=== PATIENT | male | born 1970 | race Caucasian/White ===

== ENCOUNTER → 2024-04-13 10:08 | Outpatient (REF) | payer MEDICARE, OTHER, SELFPAY ==
[2024-04-13 12:34] LABS: ALT (SGPT) 33 U/L (0-50); AST (SGOT) 49 U/L (17-59); Blood Urea Nitrogen 25 mg/dl (9-20); Calcium 9.8 mg/dl (8.4-10.2); Carbon Dioxide 24 mmol/L (22-30); Chloride 105 mmol/L (98-107); Glucose 98 mg/dl (70-99); HDL Cholesterol 48 mg/dl; LDL Cholesterol, Calculated 110 mg/dl; Potassium 4.5 mmol/L (3.5-5.1); Sodium 144 mmol/L (135-145); Total Cholesterol 233 mg/dl (50-199); Triglyceride 379 mg/dl (10-149); Very Low Density Lipoprotein 75 mg/dl (0-30); eGFR 44.45
[2024-04-13 13:03] LABS: TSH 5.63 uIU/ml (0.47-4.68)
== END ==
LOC: HWRAD 10:08
PROVIDERS: ATTENDING PHYSICIAN Internal Medicine Interventional Cardiology; FAMILY PHYSICIAN Family Medicine
DX: I71.21 Aneurysm of the ascending aorta, without rupture (principal); E78.5 Hyperlipidemia, unspecified
CPT/HCPCS: 36415; 71250; 74176; 80048; 80061; 84443; 84450; 84460

== ENCOUNTER → 2024-05-04 10:36 | Outpatient (REF) | payer OTHER, SELFPAY ==
[2024-05-04 11:49] LABS: Urine Albumin Trace (Neg - Trace); Urine Bilirubin 1+ (Negative); Urine Character Clear (Clear); Urine Color Yellow; Urine Glucose Negative (Negative); Urine Ketone Negative (Negative); Urine Leukocyte Negative (Negative); Urine Nitrite Negative (Negative); Urine Occult Blood Negative (Negative); Urine Urobilinogen 1+ (Neg - 1+)
[2024-05-04 11:55] LABS: Blood Urea Nitrogen 31 mg/dl (9-20); Calcium 10.1 mg/dl (8.4-10.2); Carbon Dioxide 20 mmol/L (22-30); Chloride 104 mmol/L (98-107); Glucose 108 mg/dl (70-99); Phosphorus 3.8 mg/dl (2.5-4.5); Potassium 4.6 mmol/L (3.5-5.1); Sodium 140 mmol/L (135-145); eGFR 44.45
[2024-05-04 12:06] LABS: Intact PTH 86.1 pg/ml (13.6-85.8)
[2024-05-04 12:17] LABS: Osmolality Urine 453 mOsm/kg (300-900); Protein/creatinine Ratio 0.1; Urine Protein 14 mg/dl
== END ==
LOC: REG 10:36
PROVIDERS: ATTENDING PHYSICIAN Specialist
DX: N18.31 Chronic kidney disease, stage 3a (principal); N25.81 Secondary hyperparathyroidism of renal origin; E83.52 Hypercalcemia; E87.1 Hypo-osmolality and hyponatremia
CPT/HCPCS: 36415; 80048; 81003; 82570; 83935; 83970; 84100; 84156

== ENCOUNTER → 2024-10-31 12:35 | Outpatient (REF) | payer OTHER, SELFPAY ==
[2024-10-31 13:37] LABS: Blood Urea Nitrogen 19 mg/dl (9-20); Calcium 9.8 mg/dl (8.4-10.2); Carbon Dioxide 25 mmol/L (22-30); Chloride 109 mmol/L (98-107); Glucose 105 mg/dl (70-99); HDL Cholesterol 44 mg/dl; LDL Cholesterol, Calculated 95 mg/dl; Potassium 4.5 mmol/L (3.5-5.1); Sodium 143 mmol/L (135-145); Total Cholesterol 218 mg/dl (50-199); Triglyceride 396 mg/dl (10-149); Very Low Density Lipoprotein 79 mg/dl (0-30); eGFR 47.31
[2024-10-31 14:00] LABS: TSH 2.83 uIU/ml (0.47-4.68)
== END ==
LOC: REG 12:35
PROVIDERS: ATTENDING PHYSICIAN Family Medicine
DX: E78.5 Hyperlipidemia, unspecified (principal); E03.9 Hypothyroidism, unspecified; N18.31 Chronic kidney disease, stage 3a
CPT/HCPCS: 36415; 80048; 80061; 84443

== ENCOUNTER → 2024-11-28 11:56 | Outpatient (REF) | payer OTHER, SELFPAY ==
[2024-11-28 13:05] LABS: % Basophils 0.7 % (0-2); % Eosinophils 3.4 % (0-6); % Lymphocytes 30.6 % (20.5-51.1); % Monocytes 12.4 % (1.7-9.3); % Neutrophils 51.9 % (42.2-75.2); Absolute Basophils 0.1 10^3/uL (0-0.2); Absolute Eosinophils 0.2 10^3/uL (0-0.7); Absolute Immature Granulocytes 0.1 10^3/uL (0-0.05); Absolute Lymphocytes 2.1 10^3/uL (1.2-3.4); Absolute Monocytes 0.9 10^3/uL (0.1-0.6); Absolute Neutrophils 3.6 10^3/uL (1.4-6.5); Hematocrit 38.8 % (39.0-52.0); Hemoglobin 13.1 g/dL (13.0-18.0); Mean Corp Hgb Conc. 33.8 g/dL (33.0-37.0); Mean Corpuscular Hgb 34.5 pg (27.0-31.0); Mean Corpuscular Volume 102.1 fL (80.0-94.0); Mean Platelet Volume 11.8 fL (7.4-10.4); Nucleated Red Blood Cells % 0 % (-); Platelet Count 181 10^3/uL (130-400); Red Cell Dist. Width 13.2 % (11.5-14.5); White Blood Cell Count 6.9 10^3/uL (4.8-10.8)
[2024-11-28 13:11] LABS: Depakane 121.7 ug/ml (50.0-120.0)
[2024-11-28 14:02] LABS: ALT (SGPT) 29 U/L (0-50); AST (SGOT) 36 U/L (17-59); Alkaline Phosphatase 70 U/L (38-126); Blood Urea Nitrogen 21 mg/dl (9-20); Calcium 10.2 mg/dl (8.4-10.2); Carbon Dioxide 23 mmol/L (22-30); Chloride 105 mmol/L (98-107); Glucose 159 mg/dl (70-99); HDL Cholesterol 37 mg/dl; Potassium 4.5 mmol/L (3.5-5.1); Sodium 141 mmol/L (135-145); Total Bilirubin 0.6 mg/dl (0.2-1.3); Total Cholesterol 228 mg/dl (50-199); Total Protein 6.8 g/dl (6.3-8.2); Triglyceride > 400 mg/dl (10-149)
[2024-11-28 14:27] LABS: LDL Cholesterol, Direct 130 mg/dl
[2024-11-28 14:50] LABS: Glycohemoglobin (HgbA1c) 5.9 % (4.0-5.6)
== END ==
LOC: REG 11:56
PROVIDERS: ATTENDING PHYSICIAN Nurse Practitioner Family; FAMILY PHYSICIAN Family Medicine
DX: Z79.899 Other long term (current) drug therapy (principal)
CPT/HCPCS: 36415; 80053; 80061; 80159; 80164; 83036; 83721; 85025

== ENCOUNTER 2025-01-16 06:19 | Day surgery (SDC) | payer OTHER, SELFPAY ==
[2025-01-16 12:39] VITALS: BMI 47.8
[2025-01-16 12:42] VITALS: BMI 47.8
[2025-01-16 12:43] VITALS: BP 136/90
[2025-01-16 14:27] VITALS: BP 112/95
[2025-01-16 14:30] VITALS: BP 107/73
[2025-01-16 14:45] VITALS: BP 111/89
== END 2025-01-16 15:20 | disposition home or self-care (01) ==
LOC: SDS 06:19
PROVIDERS: ATTENDING PHYSICIAN Surgery
DX: Z12.11 Encounter for screening for malignant neoplasm of colon (principal); Z53.9 Procedure and treatment not carried out, unspecified reason
CPT/HCPCS: G0121

== ENCOUNTER 2025-03-19 15:53 | Inpatient (IN) | payer OTHER, SELFPAY ==
--- NOTE | 2025-03-19 12:29 | HPS.HSE ---
Family Physician
-
Family Physician: NO INTERVIEW UNKNOWN
Chief Complaint
-
change in bowel habits
History of Present Illness
54-year-old male with PMH of LETICIA (on CPAP), HTN, HLD, hypothyroidism, bipolar disorder, schizoaffective disorder, CKD stage III, BMI > 49, AAA who presents for discussion of colonoscopy.� He denies any symptoms. Specifically, denies any
nausea/vomiting, change in appetite, unintentional weight loss, abdominal pain or hematochezia.� He does have issues with constipation.� He has a bowel movement about once a day, but strains to get it out. Denies diarrhea.
Last colonoscopy was 01/16/2025 by myself, which had solid stool within the rectosigmoid and sigmoid colon, precluding visualization and the colonoscopy was aborted. His prior colonoscopy was in [address] Carter, which was complicated by poor prep
and recommended to be repeated. Denies family history of CRC.
Medical History
Past Medical History
Past Medical History: Reports Other (sleep apnea, obesity, bipolar disorder, hyperparathyroidism, HTN, dyslipidemia, chronic stage II kidney disease, hypothyroid, hyperlipidemia, BPH, schizophrenia )
Past Surgical History: Reports Other (none)
Social History
Tobacco: Non-smoker
Alcohol: None
Family History
Family History: Not pertinent
Allergies / Home Medications
Allergies reflects when Allergies were last updated in [facility].
Home Medications with original date entered in [facility]
Acetaminophen 325 MG Tablet 1-2 tab Orally q 6 PRN
Aspirin 81(Aspirin) 81 MG Tablet Chewable 1 tablet Orally Once a day
Atorvastatin Calcium 20 MG Tablet 1 tablet Orally Once a day
Clozaril(cloZAPine) 100 MG Tablet 3 tabs pm Oral Once a Day
Depakote(Divalproex Sodium) 500 MG Tablet Delayed Release 1 tablet am 3 tablets HS Oral Twice a day
Levothyroxine Sodium 100 MCG Tablet 1 tablet in the morning on an empty stomach Orally Once a day
Lexapro(Escitalopram Oxalate) 10 MG Tablet take 1 tablet by oral route every day Oral Once a Day
Lopid(Gemfibrozil) 600 MG 1 tablet twice a day
OralSEROquel(QUEtiapine Fumarate) 200 MG Tablet 1 tablet Orally
SEROquel(QUEtiapine Fumarate) 300 MG Tablet 1 tablet at bedtime
Tamsulosin HCl 0.4 MG Capsule 1 capsule Orally Once a day
Tums PRN
Allergy/Medication List:
NKDA
Review of Systems
-
History Source: Patient
A 12 point ROS was completed and negative except as noted: Yes
Abdomen/GI: Reports Constipated
Physical Exam
Physical Exam
General: Well Developed and Well Nourished
GI: Soft, Non Tender and Non Distended
Neuro: AO x 3
Psych: Calm
Data Reviewed
-
Old Records: Reviewed
Impression/Plan
-
IMPRESSION: 54yo male with a history of recent colonoscopy on 01/16/2025, with solid stool in the rectosigmoid and sigmoid, presents for a bowel prep followed by colonoscopy
PLAN:
-Bowel prep to start at 5pm tonight
-Clear liquids today, NPO at midnight
-OOB as tolerated
-Colonoscopy tomorrow with Dr. Chatman
[2025-03-19 16:10] VITALS: BP 146/103; BMI 48.4
[2025-03-19] MEDS: NULYTELY SOLUTION 4 LITERS PO (16:49)
[2025-03-19 16:57] LABS: Hematocrit 40.8 % (39.0-52.0); Hemoglobin 13.7 g/dL (13.0-18.0); Mean Corp Hgb Conc. 33.6 g/dL (33.0-37.0); Mean Corpuscular Volume 103.3 fL (80.0-94.0); Nucleated Red Blood Cells % 0 % (-); Platelet Count 167 10^3/uL (130-400); Red Cell Dist. Width 13.1 % (11.5-14.5)
--- NOTE | 2025-03-19 17:02 | PTCARENOTE ---
pt admitted as direct admit to 2N this afternoon. bowel prep started at 1650. pt educated on importance of drinking the prep and discussed NPO order with patient that will start at midnight. IV site placed by VAT and pt was educated on how to call
down for clear liquid diet meals and how to call for assistance within the room.
--- NOTE | 2025-03-19 17:10 | PTCARENOTE ---
enterprise application architect colorectal provider notified of medication confirmation and to add medications to MAR. pt does not have a current list with him, but states they all sound accurate. pt emergency contact did not answer when nurse attempted to call
[2025-03-19 18:03] VITALS: BP 141/83
[2025-03-19 20:52] LABS: Blood Urea Nitrogen 22 mg/dl (9-20); Calcium 9.2 mg/dl (8.4-10.2); Carbon Dioxide 26 mmol/L (22-30); Chloride 106 mmol/L (98-107); Estimated Creatinine Clearance 76 ml/min; Glucose 110 mg/dl (70-99); Sodium 140 mmol/L (135-145); eGFR 47.31
[2025-03-19 21:35] LABS: Potassium 4.4 mmol/L (3.5-5.1)
[2025-03-19] MEDS: MELATONIN 3 MG PO (22:50)
[2025-03-19] MEDS: LIPITOR 20 MG PO (22:50)
[2025-03-19] MEDS: DEPAKOTE ER (24 HR RELEASE) 250 MG PO (22:50)
[2025-03-19] MEDS: DEPAKOTE ER (24 HR RELEASE) 1000 MG PO (22:50)
[2025-03-19] MEDS: SEROQUEL 300 MG PO (22:51)
[2025-03-19] MEDS: CLOZARIL 100 MG PO (22:51)
[2025-03-19 23:23] VITALS: BP 148/93
[2025-03-20] VITALS (8 sets, daily range): BP systolic 103–137; BP diastolic 73–116
[2025-03-20] MEDS: NSS 1000 IV ×2 (00:47→12:11)
[2025-03-20] MEDS: SYNTHROID 112 MCG PO (05:47)
--- NOTE | 2025-03-20 06:13 | PTCARENOTE ---
0000 pt completed colonoscopy prep 4liters of Colyte Prep
0200 still having a lot of soft bms. w/ liquid mixed. [place] texted Dr. Chatman
0400 continues w/ bowel movements- soft and Liquid
0600 dark brown liquid BM.
New Order - 2 more liters of Colyte Prep to hopefully clean out patient.
[2025-03-20] MEDS: ASPIR LOW (ENTERIC COATED) 81 MG PO (08:41)
[2025-03-20] MEDS: CLOZARIL 100 MG PO ×3 (08:41→21:49)
[2025-03-20] MEDS: FLOMAX 0.4 MG PO (08:41)
[2025-03-20] MEDS: DEPAKOTE ER (24 HR RELEASE) 500 MG PO (08:41)
[2025-03-20] MEDS: PROTONIX 40 MG PO (08:41)
[2025-03-20] MEDS: SEROQUEL 200 MG PO (08:41)
[2025-03-20] MEDS: LEXAPRO 10 MG PO (08:41)
[2025-03-20] MEDS: NULYTELY SOLUTION 2 LITERS PO (09:22)
--- NOTE | 2025-03-20 16:15 | CM ---
Chart reviewed and patient has a past medical history of schizoaffective disorder bipolar type, patient reports he lives in a large building and that he is independent with adl's and ambulation, patient was followed by Ananda and had a blended case
emergency medical service manager patient has been inpatient at [facility] in [place], and [facility], in past. Plan is to home when stable.
media manager received a consult from nursing for assistance with transport, per patient he can get an Uber through his friend Chip and his Camryn, .
Plan; Home when stable, no needs.
--- NOTE | 2025-03-20 18:14 | PTCARENOTE ---
Patient received from PACU. VSS. Reg diet ordered. Patient resting comfortably in bed. Pt. will be d/c in am per Dr. Bonner.
[2025-03-20] MEDS: LIPITOR 20 MG PO (21:49)
[2025-03-20] MEDS: DEPAKOTE ER (24 HR RELEASE) 1000 MG PO (21:49)
[2025-03-20] MEDS: SEROQUEL 300 MG PO (21:49)
[2025-03-20] MEDS: DEPAKOTE ER (24 HR RELEASE) 250 MG PO (21:49)
[2025-03-20] MEDS: MELATONIN 3 MG PO (21:50)
[2025-03-21 07:00] VITALS: BP 112/68
[2025-03-21] MEDS: SYNTHROID 112 MCG PO (07:22)
--- NOTE | 2025-03-21 08:45 | W.PN.CRS1 ---
Addendum entered and electronically signed by Jenny Giles PA-C 03/21/25 13:23:
Of note, the patient was admitted for a bowel prep one day prior to the colonoscopy. This was because of his two reasons: poor prep at home in the past, and assistance in taking the prep due to medical conditions. The patient then stayed overnight
last night due to several hours of anesthesia and need for recovery, as he was not able to safely be discharged.
Original Note:
Today's Communication / Plan
-
discharge
Assessment/Plan
-
POD#1 colonoscopy with multiple polypectomies
vitals normal
no labs
-Polyps pathology pending
-OOB as tolerated
-Regular diet
-OKay for d/c today. Discharge instructions discussed with patient. Will receive a call from Dr. Chatman's office when pathology has completed.
Subjective Data
Procedure
03/20/2025- colonoscopy
Subjective Data
Date of Service: March 21, 2025
Patient states he is 'tired'. He has no other complaints. Denies abdominal pain. Denies nausea or vomiting.
Objective Data
-
Vital Signs
Temp Pulse Resp BP Pulse Ox
97.6 F 80 16 112/68 95
03/21/25 07:00 03/21/25 07:00 03/21/25 07:00 03/21/25 07:00 03/21/25 07:00
Intake & Output
03/20/25 03/21/25 03/22/25
06:59 06:59 06:59
Intake Total 4560 / 4560 3960 / 3960
Balance 4560 / 4560 3960 / 3960
Intake:
Oral fluids 4560 / 4560 3360 / 3360
IV fluids (Total) 600 / 600
Other:
Number of approximated MODERATE 2
amounts of urine
How many times incontinent 2
SATURATED amount urine
Number of unmeasured liquid
stools
Rectum 10 8
Lab Results
03/19/25 16:48
03/19/25 21:11
Physical Exam
-
General: No Acute Distress and AOx3
Abdomen: Soft, Non Distended and Non Tender
Skin: Warm and Dry
[2025-03-21] MEDS: PROTONIX 40 MG PO (09:09)
[2025-03-21] MEDS: ASPIR LOW (ENTERIC COATED) 81 MG PO (09:10)
[2025-03-21] MEDS: LEXAPRO 10 MG PO (09:10)
[2025-03-21] MEDS: SEROQUEL 200 MG PO (09:10)
[2025-03-21] MEDS: FLOMAX 0.4 MG PO (09:10)
[2025-03-21] MEDS: DEPAKOTE ER (24 HR RELEASE) 500 MG PO (09:10)
[2025-03-21] MEDS: CLOZARIL 100 MG PO (09:11)
[2025-03-21 11:15] VITALS: BP 99/76
--- NOTE | 2025-03-21 12:24 | CM ---
Home today, no needs.
Plan; Home no needs.
== END 2025-03-21 11:28 | disposition home or self-care (01) | DRG 951 ==
LOC: 2 NORTH 15:53
PROVIDERS: Physician Assistant; ADMITTING PHYSICIAN Surgery
PROC: 0DBM8ZZ Excision of Descending Colon, Via Natural or Artificial Opening Endoscopic (ICD-10-PCS; 2025-03-20)
PROC: 0DBL8ZZ Excision of Transverse Colon, Via Natural or Artificial Opening Endoscopic (ICD-10-PCS; 2025-03-20)
PROC: 0DBK8ZZ Excision of Ascending Colon, Via Natural or Artificial Opening Endoscopic (ICD-10-PCS; 2025-03-20)
DX: Z12.11 Encounter for screening for malignant neoplasm of colon (principal); Q43.8 Other specified congenital malformations of intestine; Z68.42 Body mass index [BMI] 45.0-49.9, adult; K63.5 Polyp of colon; K59.00 Constipation, unspecified; E03.9 Hypothyroidism, unspecified; E66.9 Obesity, unspecified; N40.0 Benign prostatic hyperplasia without lower urinary tract symptoms; K64.8 Other hemorrhoids; G47.30 Sleep apnea, unspecified; F31.9 Bipolar disorder, unspecified; E21.3 Hyperparathyroidism, unspecified; E78.5 Hyperlipidemia, unspecified; I12.9 Hypertensive chronic kidney disease with stage 1 through stage 4 chronic kidney disease, or unspecified chronic kidney disease; N18.30 Chronic kidney disease, stage 3 unspecified; F25.9 Schizoaffective disorder, unspecified; I71.40 Abdominal aortic aneurysm, without rupture, unspecified; Z79.82 Long term (current) use of aspirin; Z79.890 Hormone replacement therapy; Z79.899 Other long term (current) drug therapy
CPT/HCPCS: 80048; 84132; 85025; 88305

== ENCOUNTER → 2025-03-30 10:34 | Outpatient (REF) | payer MEDICARE, OTHER, SELFPAY ==
[2025-03-30 12:03] LABS: ALT (SGPT) 22 U/L (0-50); AST (SGOT) 21 U/L (17-59); HDL Cholesterol 46 mg/dl; LDL Cholesterol, Calculated 93 mg/dl; Very Low Density Lipoprotein 78 mg/dl (0-30)
== END ==
LOC: REG 10:34
PROVIDERS: ATTENDING PHYSICIAN Family Medicine
DX: E78.5 Hyperlipidemia, unspecified (principal)
CPT/HCPCS: 36415; 80061; 84450; 84460

== ENCOUNTER → 2025-04-23 11:53 | Outpatient (REF) | payer OTHER, SELFPAY | LOC: HWRAD 11:53 | PROVIDERS: ATTENDING PHYSICIAN Internal Medicine Interventional Cardiology | DX: I71.21 Aneurysm of the ascending aorta, without rupture (principal) | CPT/HCPCS: 71250 ==